=== PATIENT | male | born 1995 | race Caucasian/White ===

== ENCOUNTER 2020-07-30 22:50 | Observation (INO) | payer MEDICARE, OTHER ==
[~2020-07-30] VITALS: Ht 185.4 cm; Wt 110.4 kg
[2020-07-31] MEDS ORDERED: PROTONIX 40 MG40 M1 PO (10:31)
== END 2020-07-31 12:30 | disposition home or self-care (01) ==
LOC: ER1 22:50 → CDU 07-31 00:28 → M/S 07-31 02:05
PROVIDERS: ADMIT Surgery
DX: T18.128A Food in esophagus causing other injury, initial encounter (principal); Q39.6 Congenital diverticulum of esophagus; K20.90 Esophagitis, unspecified without bleeding; G40.909 Epilepsy, unspecified, not intractable, without status epilepticus; F17.210 Nicotine dependence, cigarettes, uncomplicated; Z20.822 Contact with and (suspected) exposure to COVID-19; Z79.899 Other long term (current) drug therapy; X58.XXXA Exposure to other specified factors, initial encounter
CPT/HCPCS: 87635; 96365; 96366; 99285; G0378; J0330; J1953; J2250; J2405; J2704; J7040

== ENCOUNTER 2020-11-28 15:00 | Emergency (ER) | payer MEDICARE, OTHER ==
[~2020-11-28 15:00] MED LIST: PROTONIX 40 MG40 M1 PO
[2020-11-28 16:45] LABS: HEMOGLOBIN 16.5 gm/dl (14.0-17.5); RED BLOOD COUNT 5.12 M/UL (4.20-5.50); WHITE BLOOD COUNT 6.2 K/UL (4.5-11.0)
[2020-11-28 17:01] LABS: BUN/CREATININE RATIO 9 (0-10)
== END 2020-11-28 17:45 | disposition home or self-care (01) ==
LOC: ER1 15:00
PROVIDERS: Emergency Medicine
DX: T18.128A Food in esophagus causing other injury, initial encounter (principal); G40.909 Epilepsy, unspecified, not intractable, without status epilepticus; F17.200 Nicotine dependence, unspecified, uncomplicated
CPT/HCPCS: 80053; 85025; 96374; 96375; 99283; J1610; J2405